=== PATIENT | female | born 1955 ===

== ENCOUNTER 2024-09-01 06:13 | Day surgery (SDC) | payer OTHER ==
[2024-08-28 11:32] VITALS: BP 131/70
[2024-08-28 14:35] LABS: INR 1.05; PROTHROMBIN TIME 11.4 SECONDS (9.0-11.5)
[2024-08-28 14:51] LABS: PARTIAL THROMBOPLASTIN TIME 40.2 SECONDS (22.0-34.0)
[~2024-09-01] VITALS: Ht 154.9 cm; Wt 44.5 kg
[~2024-09-01 06:13] MED LIST: ATORVASTATIN CA10 MG PO; CALTRATE 600-D1 EACH PO; DILTIAZEM 24HR180 MG PO; ZANAFLEX4 M1 PO
[2024-09-01] MEDS ORDERED: METRONIDAZOLE/SODIUM CHLORIDE 500 MG/100 ML PIGGYBACK IV ONE (12:18)
[2024-09-01] MEDS ORDERED: DIBUCAINE 30 GM TUBE RECTAL ONE (12:30)
[2024-09-01] MEDS ORDERED: BUPIVACAINE HCL/PF 0.25% 30ML VIAL InF ONE (12:30)
[2024-09-01] MEDS ORDERED: CEFTRIAXONE SODIUM 2,000 MG VIAL IV ONE (12:30)
[2024-09-01] MEDS ORDERED: LIDOCAINE HCL 1%/EPINEPHRINE 20ML VIAL IJ ONE (12:30)
[2024-09-01] MEDS ORDERED: HEMOSTATIC MATRIX 1 KIT KIT TOP ONE (12:30)
[2024-09-01] MEDS ORDERED: POVIDONE-IODINE 118 ML BOTT TOP ONE (12:30)
[2024-09-01] MEDS ORDERED: COLACE100 MG PO (13:36)
[2024-09-01] MEDS ORDERED: TRAM1TAB98 PO (13:36)
== END 2024-09-01 17:45 | disposition home or self-care (01) ==
LOC: CIR.AMB 06:13
PROVIDERS: ATTEND Surgery
DX: D12.8 Benign neoplasm of rectum (principal); K62.89 Other specified diseases of anus and rectum

== ENCOUNTER 2024-09-01 07:31 | Outpatient (CLI) | payer OTHER ==
[2024-09-01 09:05] LABS: INR 1.08; PROTHROMBIN TIME 11.7 SECONDS (9.0-11.5)
[2024-09-01 09:06] LABS: PARTIAL THROMBOPLASTIN TIME 39.3 SECONDS (22.0-34.0)
[2024-09-01] MEDS ORDERED: TRAM1TAB98 PO (13:36)
[2024-09-01] MEDS ORDERED: COLACE100 MG PO (13:36)
== END 2024-09-01 11:35 | disposition home or self-care (01) ==
LOC: LAB 07:31
PROVIDERS: ATTEND Surgery
DX: D68.9 Coagulation defect, unspecified (principal)